=== PATIENT | female | born 1955 | race Caucasian/White ===

== ENCOUNTER 2018-03-10 13:34 | Day surgery (SDC) | payer OTHER ==
[2018-03-10] MEDS ORDERED: FENTAnyl 50 MCG/ML VIAL (14:44)
[2018-03-10] MEDS ORDERED: PROPOFOL 20 ML (14:44)
[2018-03-10] MEDS ORDERED: MIDAZOLAM 1 MG/ML 2 ML INJ (14:44)
== END 2018-03-10 17:33 | disposition home or self-care (01) ==
LOC: GIL 13:34
DX: Z12.11 Encounter for screening for malignant neoplasm of colon (principal); D12.3 Benign neoplasm of transverse colon; K64.8 Other hemorrhoids; I10 Essential (primary) hypertension; E66.9 Obesity, unspecified; Z68.42 Body mass index [BMI] 45.0-49.9, adult
CPT/HCPCS: 45380; 88305